=== PATIENT | female | born 1985 | race Caucasian/White ===

== ENCOUNTER 2018-09-21 15:03 | Emergency (ER) | payer BC ==
--- OUTSIDE RECORDS SUMMARY | 2018-09-21 15:05 | XMS REPORT | Clinical Summary ---
:1985 Author Organization [facility] Address [address] [place] [address] Care Team Providers Name Role Phone Scottie Bateman MD Primary Care Provider Unavailable Allergies No Known Allergies Medications Not on file Active Problems Problem Noted Date Vaginal discharge 09/06/2016 Social History Tobacco Use Types Packs/Day Years Used Date Never Smoker Alcohol Use Drinks/Week oz/Week Comments Yes ocassional Sex Assigned at Date Recorded Not on file Job Start Date Occupation Industry Not on file Not on file Not on file Travel History Travel Start Travel End No recent travel history available. Last Filed Vital Signs Not on file Plan of Treatment Health Maintenance Due Date Last Done Comments CERVICAL CANCER SCREENING 01/31/2008 INFLUENZA VACCINE 06/10/2018 Results Not on fileafter 09/20/2017 Insurance Payer Benefit Plan / Group Subscriber ID Type Phone Address [facility] CHOICE/CHOICE + xxxxxxxxx HMO/PPO Advance Directives Patient has advance care planning documents on file. For more information, please contact:[phone] [place] [address]
--- NOTE | 2018-09-21 15:56 | ER ---
Nurse's Notes [facility] Name: Maria Victoria Abdalla Age: 33 yrs Sex: Female : 1985 Arrival Date: 09/21/2018 Time: 15:06 Bed Treatment Private MD: LEON DESAI Diagnosis: Acute pharyngitis Presentation: 09/21 15:09 Presenting complaint: Patient states: sore throat, left neck swelling, fever Tmax sv 101.8. Tylenol taken at 0530. Transition of care: patient was not received from another setting of care. Onset of symptoms was September 21, 2018. Care prior to arrival: None. 15:09 Method Of Arrival: Ambulatory sv 15:09 Acuity: DIMPLE 4 sv 16:08 Risk Assessment: Do you want to hurt yourself or someone else? Patient reports no rv desire to harm self or others. Initial Sepsis Screen: Does the patient meet any 2 criteria? No. Patient's initial sepsis screen is negative. Does the patient have a suspected source of infection? No. Patient's initial sepsis screen is negative. Triage Assessment: 15:12 General: Appears in no apparent distress. uncomfortable, obese, Behavior is calm, sv cooperative, appropriate for age. General: Reports fever for 0-12 hours. Pain: Complains of pain in throat Pain currently is 2 out of 10 on a pain scale. EENT: Reports pain in left aspect of posterior pharynx and right aspect of posterior pharynx. Neuro: Level of Consciousness is awake, alert, obeys commands, Oriented to person, place, time, situation, Moves all extremities. Full function Gait is steady, Speech is normal. Respiratory: Respiratory effort is even, unlabored, Respiratory pattern is regular, symmetrical. Historical: - Allergies: 15:11 No Known Allergies; sv - Home Meds: 16:14 Adderall XR 20 mg Oral cp24 1 cap three times a day [Active]; amlodipine 10 mg tab 1 rv tab once daily [Active]; Lexapro 10 mg Oral tab 1 tab nightly [Active]; metformin 750 mg Oral Tb24 1 tab twice a day [Active]; Singulair 10 mg Oral tab 1 tab once daily [Active]; - PMHx: 15:11 ADD/ADHD; Hypertension; PCOS; Tachycardia; sv - PSHx: 16:14 Unable to obtain; rv - Immunization history:: Flu vaccine is not up to date. - Social history:: Smoking status: Patient/guardian denies using tobacco. - Ebola Screening: : No symptoms or risks identified at this time. Screenin:08 Abuse screen: Denies threats or abuse. Denies injuries from another. Nutritional rv screening: No deficits noted. Tuberculosis screening: No symptoms or risk factors identified. Fall Risk None identified. Assessment: 16:07 General: Appears in no apparent distress. comfortable, Behavior is calm, cooperative. rv Pain: Complains of pain in throat. Neuro: Level of Consciousness is awake, alert, obeys commands, Oriented to person, place, time, situation. Cardiovascular: Capillary refill < 3 seconds. Respiratory: Airway is patent Breath sounds are clear bilaterally. GI: No signs and/or symptoms were reported involving the gastrointestinal system. : No signs and/or symptoms were reported regarding the genitourinary system. EENT: Throat is reddened. Derm: Skin is intact. Musculoskeletal: No signs and/or symptoms reported regarding the musculoskeletal system. Vital Signs: 15:11 BP 133 / 98; Pulse 100; Resp 20; Temp 98.6; Pulse Ox 100% ; Weight 120.2 kg; Height 5 sv ft. 5 in. (165.10 cm); Pain 2/10; 15:11 Body Mass Index 44.10 (120.20 kg, 165.10 cm) sv ED Course: 15:06 Patient arrived in ED. sb2 15:06 LEON DESAI is Private Physician. sb2 15:10 Triage completed. sv 15:12 Arm band placed on. sv 15:14 Zoie Rebolledo FNP-C [facility]. snw 15:15 Ronaldo Chavarria MD is Attending Physician. snw 16:08 Patient has correct armband on for positive identification. Bed in low position. Call rv light in reach. Side rails up X 1. Pulse ox on. NIBP on. 16:13 No provider procedures requiring assistance completed. Patient did not have IV access rv during this emergency room visit. Administered Medications: 16:00 Drug: Decadron - Dexamethasone 10 mg {Note: given PO..} Route: IVP; Site: Other; rv 16:12 Follow up: Response: Medication administered at discharge. rv 16:02 Drug: Albuterol 2.5 mg Route: Inhalation; rv 16:13 Follow up: Response: No adverse reaction rv Outcome: 15:56 Discharge ordered by . sachin 16:15 Discharged to home ambulatory. rv 16:15 Condition: improved 16:15 Discharge instructions given to patient, Instructed on discharge instructions, follow up and referral plans. medication usage, Demonstrated understanding of instructions, follow-up care, medications, Prescriptions given X 2. 16:15 Patient left the ED. rv Signatures: Lindy Santos RN RN sv Zoie Rebolledo, DIGITAL COMMUNITY MANAGER-C DIGITAL COMMUNITY MANAGER-Verona Gallo sb2 Fam Wallace RN RN rv Corrections: (The following items were deleted from the chart) 15:13 15:11 Pulse 100bpm; Resp 20bpm; Pulse Ox 100%; Temp 98.6F; 120.2 kg; Height 5 ft. 5 sv in.; BMI: 44.1; Pain 2/10; sv
--- NOTE | 2018-09-21 15:56 | EDPHYS ---
Physician Documentation [facility] Name: Maria Victoria Abdalla Age: 33 yrs Sex: Female : 1985 Arrival Date: 09/21/2018 Time: 15:06 Bed Treatment Private MD: LEON DESAI ED Physician Ronaldo Chavarria HPI: 09/21 15:54 This 33 yrs old Female presents to ER via Ambulatory with complaints of Sore snw Throat. 15:54 The patient presents with sore throat. The patient describes throat pain as raw, snw scratchy. Onset: The symptoms/episode began/occurred suddenly, 1 day(s) ago, and became worse and became persistent. Severity of symptoms: At their worst the symptoms were moderate, severe. Associated signs and symptoms: The patient has no apparent associated signs or symptoms. The patient has experienced a previous episode. The patient has not recently seen a physician. Historical: - Allergies: 15:11 No Known Allergies; sv - Home Meds: 16:14 Adderall XR 20 mg Oral cp24 1 cap three times a day [Active]; amlodipine 10 mg tab 1 rv tab once daily [Active]; Lexapro 10 mg Oral tab 1 tab nightly [Active]; metformin 750 mg Oral Tb24 1 tab twice a day [Active]; Singulair 10 mg Oral tab 1 tab once daily [Active]; - PMHx: 15:11 ADD/ADHD; Hypertension; PCOS; Tachycardia; sv - PSHx: 16:14 Unable to obtain; rv - Immunization history:: Flu vaccine is not up to date. - Social history:: Smoking status: Patient/guardian denies using tobacco. - Ebola Screening: : No symptoms or risks identified at this time. ROS: 15:53 Eyes: Negative for injury, pain, redness, and discharge. snw 15:53 Neck: Negative for injury, pain, and swelling, Cardiovascular: Negative for chest pain, palpitations, and edema, Respiratory: Negative for shortness of breath, cough, wheezing, and pleuritic chest pain, Abdomen/GI: Negative for abdominal pain, nausea, vomiting, diarrhea, and constipation, Back: Negative for injury and pain, : Negative for injury, bleeding, discharge, and swelling, MS/Extremity: Negative for injury and deformity, Skin: Negative for injury, rash, and discoloration, Neuro: Negative for headache, weakness, numbness, tingling, and seizure. 15:53 Constitutional: Positive for body aches, fever, malaise. 15:53 ENT: Positive for sore throat. Exam: 15:52 Constitutional: This is a well developed, well nourished patient who is awake, alert, snw and in no acute distress. Head/Face: Normocephalic, atraumatic. Eyes: Pupils equal round and reactive to light, extra-ocular motions intact. Lids and lashes normal. Conjunctiva and sclera are non-icteric and not injected. Cornea within normal limits. Periorbital areas with no swelling, redness, or edema. ENT: Nares patent. No nasal discharge, no septal abnormalities noted. Tympanic membranes are not seen and external auditory canals are impacted with cerumen. Oropharynx with redness, swelling, no masses, exudates, or evidence of obstruction, uvula midline. Mucous membranes moist. Neck: Trachea midline, no thyromegaly or masses palpated, and no cervical lymphadenopathy. Supple, full range of motion without nuchal rigidity, or vertebral point tenderness. No Meningismus. Chest/axilla: Normal chest wall appearance and motion. Nontender with no deformity. No lesions are appreciated. Cardiovascular: Regular rate and rhythm with a normal S1 and S2. No gallops, murmurs, or rubs. Normal PMI, no JVD. No pulse deficits. Abdomen/GI: Soft, non-tender, with normal bowel sounds. No distension or tympany. No guarding or rebound. No evidence of tenderness throughout. Back: No spinal tenderness. No costovertebral tenderness. Full range of motion. 15:52 Skin: Warm, dry with normal turgor. Normal color with no rashes, no lesions, and no evidence of cellulitis. MS/ Extremity: Pulses equal, no cyanosis. Neurovascular intact. Full, normal range of motion. Neuro: Awake and alert, GCS 15, oriented to person, place, time, and situation. Cranial nerves II-XII grossly intact. Motor strength 5/5 in all extremities. Sensory grossly intact. Cerebellar exam normal. Normal gait. 15:52 Respiratory: the patient does not display signs of respiratory distress, Respirations: normal, Breath sounds: wheezing: expiratory that is mild, is scattered. Vital Signs: 15:11 BP 133 / 98; Pulse 100; Resp 20; Temp 98.6; Pulse Ox 100% ; Weight 120.2 kg; Height 5 sv ft. 5 in. (165.10 cm); Pain 2/10; 15:11 Body Mass Index 44.10 (120.20 kg, 165.10 cm) sv MDM: 15:15 Patient medically screened. snw 16:00 Data reviewed: vital signs, nurses notes. Data interpreted: Pulse oximetry: on room air snw is 100 %. Interpretation: normal. Counseling: I had a detailed discussion with the patient and/or guardian regarding: the historical points, exam findings, and any diagnostic results supporting the discharge/admit diagnosis, the presence of at least one elevated blood pressure reading (>120/80) during this emergency department visit, lab results, the need for outpatient follow up, to return to the emergency department if symptoms worsen or persist or if there are any questions or concerns that arise at home. Special discussion: Based on the history and exam findings, there is no indication for further emergent testing or inpatient evaluation. I discussed with the patient/guardian the need to see the primary care provider for further evaluation of the symptoms. 09/21 15:15 Order name: Strep; Complete Time: 15:55 ss 09/21 15:54 Order name: Throat Culture EDMS Administered Medications: 16:00 Drug: Decadron - Dexamethasone 10 mg {Note: given PO..} Route: IVP; Site: Other; rv 16:12 Follow up: Response: Medication administered at discharge. rv 16:02 Drug: Albuterol 2.5 mg Route: Inhalation; rv 16:13 Follow up: Response: No adverse reaction rv Disposition: 09/22 07:06 Co-signature as Attending Physician, Ronaldo Chavarria MD I agree with the assessment and quan plan of care. Disposition: 09/21/18 15:56 Discharged to Home. Impression: Acute pharyngitis. - Condition is Stable. - Discharge Instructions: Fever, Adult, Pharyngitis. - Prescriptions for Prednisone 20 mg Oral Tablet - take 1 tablet by ORAL route every 12 hours for 5 days; 10 tablet. Albuterol Sulfate 90 mcg/actuation - inhale 1-2 puff by INHALATION route every 4-6 hours; 1 Inhaler. - Work release form, Medication Reconciliation Form, Thank You Letter, Antibiotic Education, Prescription Opioid Use form. - Follow up: Private Physician; When: 2 - 3 days; Reason: Recheck today's complaints, Continuance of care, Re-evaluation by your physician. Follow up: Emergency Department; When: As needed; Reason: Worsening of condition. Signatures: Dispatcher [employer] Lindy Restrepo, RN RN Ronaldo Joe MD MD cha Therrien, Shelly, WAITER/WAITRESS CLUB-C WAITER/WAITRESS CLUB-[employer] Fam Wallace, RN RN rv Corrections: (The following items were deleted from the chart) 09/21 15:57 15:55 Chart complete. [facility] sn 15:57 15:55 Chart complete. [facility] sn 16:15 15:56 09/21/2018 15:56 Discharged to Home. Impression: Acute pharyngitis. Condition is rv Stable. Forms are Medication Reconciliation Form, Thank You Letter, Antibiotic Education, Prescription Opioid Use. Follow up: Private Physician; When: 2 - 3 days; Reason: Recheck today's complaints, Continuance of care, Re-evaluation by your physician. Follow up: Emergency Department; When: As needed; Reason: Worsening of condition. snw
[2018-09-21] MEDS ORDERED: DEXAMETHASONE 4 MG/ML VIAL ONE (16:04)
[2018-09-21] MEDS ORDERED: ALBUTEROL 2.5 MG/3 ML NEB SOL ONE (16:04)
== END 2018-09-21 16:15 | disposition home or self-care (01) ==
LOC: ER 15:03
DX: J02.9 Acute pharyngitis, unspecified (principal); I10 Essential (primary) hypertension; E28.2 Polycystic ovarian syndrome; F90.9 Attention-deficit hyperactivity disorder, unspecified type; Z79.899 Other long term (current) drug therapy
CPT/HCPCS: 87070; 87081; 96374; 99284

== ENCOUNTER 2019-03-16 18:22 | Emergency (ER) | payer BC ==
--- OUTSIDE RECORDS SUMMARY | 2019-03-16 18:25 | XMS REPORT | Clinical Summary ---
:1985 Author Organization [facility] Address [address] [place] [address] Care Team Providers Name Role Phone Scottie [...] Comments CERVICAL CANCER SCREENING 01/31/2008 INFLUENZA VACCINE 06/10/2019 Results Not on fileafter 03/15/2018 Insurance Payer Benefit Plan / Group Subscriber ID Type Phone Address [facility] CHOICE/CHOICE + xxxxxxxxx HMO/PPO Advance Directives Patient has advance care planning documents on file. For more information, please contact:[phone] [place] [address]
--- NOTE | 2019-03-16 20:23 | EDPHYS ---
Physician Documentation [facility] Name: Maria Victoria Abdalla Age: 34 yrs Sex: Female : 1985 Arrival Date: 03/16/2019 Time: 18:23 Bed 11 Private MD: ED Physician Dean Kenny HPI: 03/16 20:43 This 34 yrs old Female presents to ER via Ambulatory with complaints of Ear jr8 Pain, Headache, Neck Swelling. 20:43 The patient presents with pain. The complaints affect the left ear. Onset: The jr8 symptoms/episode began/occurred acutely, today. Modifying factors: The symptoms are alleviated by nothing, the symptoms are aggravated by nothing. Associated signs and symptoms: Pertinent positives: headache. Severity of symptoms: At their worst the symptoms were moderate in the emergency department the symptoms are unchanged. The patient has not experienced similar symptoms in the past. The patient has not recently seen a physician. stated that she has history of PVC in past and started to have palpitations as well. 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 - Social history:: Smoking status: Patient/guardian denies using tobacco. - Ebola Screening: : Patient negative for fever greater than or equal to 101.5 degrees Fahrenheit, and additional compatible Ebola Virus Disease symptoms Patient denies exposure to infectious person Patient denies travel to an Ebola-affected area in the 21 days before illness onset No symptoms or risks identified at this time. ROS: 20:43 Eyes: Negative for injury, pain, redness, and discharge, Neck: Negative for injury, jr8 pain, and swelling, Cardiovascular: Negative for chest pain or edema. Positive for palpitations Respiratory: Negative for shortness of breath, cough, wheezing, and pleuritic chest pain, Abdomen/GI: Negative for abdominal pain, nausea, vomiting, diarrhea, and constipation, Back: Negative for injury and pain, MS/Extremity: Negative for injury and deformity, Skin: Negative for injury, rash, and discoloration. 20:43 ENT: Positive for ear pain, Negative for drainage from ear(s), tinnitus, nasal discharge, rhinorrhea, sinus congestion, sinus pain, difficulty swallowing, difficulty handling secretions, hoarseness. 20:43 Neuro: Positive for headache, Negative for altered mental status, dizziness, gait disturbance, hearing loss, loss of consciousness, numbness, seizure activity, speech changes, syncope, near syncope, tingling, tinnitus, tremor, visual changes, weakness. Exam: 20:43 Eyes: Pupils equal round and reactive to light, extra-ocular motions intact. Lids and jr8 lashes normal. Conjunctiva and sclera are non-icteric and not injected. Cornea within normal limits. Periorbital areas with no swelling, redness, or edema. Neck: Trachea midline, no thyromegaly or masses palpated, and no cervical lymphadenopathy. Supple, full range of motion without nuchal rigidity, or vertebral point tenderness. No Meningismus. Cardiovascular: Regular rate and rhythm with a normal S1 and S2. No gallops, murmurs, or rubs. Normal PMI, no JVD. No pulse deficits. Respiratory: Lungs have equal breath sounds bilaterally, clear to auscultation and percussion. No rales, rhonchi or wheezes noted. No increased work of breathing, no retractions or nasal flaring. Abdomen/GI: Soft, non-tender, with normal bowel sounds. No distension or tympany. No guarding or rebound. No evidence of tenderness throughout. Back: No spinal tenderness. No costovertebral tenderness. Full range of motion. Skin: Warm, dry with normal turgor. Normal color with no rashes, no lesions, and no evidence of cellulitis. MS/ Extremity: Pulses equal, no cyanosis. Neurovascular intact. Full, normal range of motion. Neuro: Awake and alert, GCS 15, oriented to person, place, time, and situation. Cranial nerves II-XII grossly intact. Motor strength 5/5 in all extremities. Sensory grossly intact. Cerebellar exam normal. Normal gait. 20:43 ENT: Exam is negative for nasal discharge, enlarged tonsils, pharyngitis, dental infection, exudate, External ear(s): are unremarkable, Ear canal(s): cerumen impaction, that is severe, that is hard, occluding the left ear canal, Examination of the other ear shows no obvious abnormality. 20:46 ECG was reviewed by the Attending Physician. jr8 Vital Signs: 18:30 BP 123 / 86; Pulse 95; Resp 16; Temp 98.6; Pulse Ox 98% on R/A; Weight 119.75 kg; aj Height 5 ft. 5 in. (165.10 cm); 18:30 Body Mass Index 43.93 (119.75 kg, 165.10 cm) aj MDM: 19:11 Patient medically screened. jr8 20:22 Data reviewed: vital signs, nurses notes, EKG. Data interpreted: Pulse oximetry: on jr8 room air is 98 %. Interpretation: normal. Counseling: I had a detailed discussion with the patient and/or guardian regarding: the historical points, exam findings, and any diagnostic results supporting the discharge/admit diagnosis, the need for outpatient follow up, an ENT specialist, to return to the emergency department if symptoms worsen or persist or if there are any questions or concerns that arise at home. 03/16 19:48 Order name: EKG; Complete Time: 19:50 jr8 EC:46 Rate is 73 beats/min. Rhythm is regular, Normal Sinus Rhythm. QRS Susan is Normal. MO jr8 interval is normal at 176 msec. QRS interval is normal at 86 msec. QT interval is normal at 451 msec. No Q waves. T waves are Normal. No ST changes noted. Clinical impression: Normal ECG and No evidence of ischemia. Interpreted by me. Reviewed by me. Administered Medications: No medications were administered Disposition: 03/16/19 20:23 Discharged to Home. Impression: Otalgia, left ear, Impacted cerumen, left ear, Palpitations. - Condition is Stable. - Discharge Instructions: Earwax Buildup, Adult, Holter Monitoring, Earache, Adult, Palpitations. - Prescriptions for Amoxicillin 875 mg Oral Tablet - take 1 tablet by ORAL route every 12 hours for 10 days; 20 tablet. - Medication Reconciliation Form, Thank You Letter, Antibiotic Education, Prescription Opioid Use form. - Follow up: Louie Ott MD; When: 2 - 3 days; Reason: Recheck today's complaints, Continuance of care, Re-evaluation by your physician. Follow up: Lindy Felix MD; When: 2 - 3 days; Reason: Recheck today's complaints, Continuance of care, Re-evaluation by your physician. - Problem is new. - Symptoms have improved. Addendum: 03/18/2019 02:07 Co-signature as Attending Physician, Dean Kenny MD. g s Signatures: Rosy Aviles RN RN aj1 Maria Victoria Camarena RN RN aj Aj Yin, ZAHIRA PA jr8 Dean Kenny MD MD gs Corrections: (The following items were deleted from the chart) 03/16 20:46 20:23 03/16/2019 20:23 Discharged to Home. Impression: Otalgia, left ear; Impacted aj1 cerumen, left ear; Palpitations. Condition is Stable. Forms are Medication Reconciliation Form, Thank You Letter, Antibiotic Education, Prescription Opioid Use. Follow up: Louie Ott; When: 2 - 3 days; Reason: Recheck today's complaints, Continuance of care, Re-evaluation by your physician. Follow up: Lindy Felix; When: 2 - 3 days; Reason: Recheck today's complaints, Continuance of care, Re-evaluation by your physician. Problem is new. Symptoms have improved. jr8
--- NOTE | 2019-03-16 20:23 | ER ---
Nurse's Notes [facility] Name: Maria Victoria Abdalla Age: 34 yrs Sex: Female : 1985 Arrival Date: 03/16/2019 Time: 18:23 Bed 11 Private MD: Diagnosis: Otalgia, left ear;Impacted cerumen, left ear;Palpitations Presentation: 03/16 18:29 Presenting complaint: Patient states: Left ear pain for 2 days. Transition of care: aj patient was not received from another setting of care. Onset of symptoms was March 14, 2019. Risk Assessment: Do you want to hurt yourself or someone else? Patient reports no desire to harm self or others. Initial Sepsis Screen: Does the patient meet any 2 criteria? No. Patient's initial sepsis screen is negative. Does the patient have a suspected source of infection? No. Patient's initial sepsis screen is negative. Care prior to arrival: None. 18:29 Method Of Arrival: Ambulatory 18:29 Acuity: DIMPLE 5 aj Triage Assessment: 18:30 General: Appears in no apparent distress. comfortable, Behavior is calm, cooperative, aj appropriate for age. Pain: Complains of pain in left ear. EENT: Reports pain in left ear. Neuro: Level of Consciousness is awake, alert, obeys commands, Oriented to person, place, time, situation, Appropriate for age. Respiratory: Airway is patent Respiratory effort is even, unlabored, Respiratory pattern is regular, symmetrical. Derm: Skin is intact, is healthy with good turgor, Skin is pink, warm \T\ dry. normal. PERSONNEL MONITOR: 18:30 LMP N/A - IUD aj Historical: - Allergies: 18:30 No Known Allergies; aj - Home Meds: 18:30 Adderall XR 20 mg Oral cp24 1 cap three times a day [Active]; amlodipine 10 mg tab 1 aj tab once daily [Active]; Lexapro 10 mg Oral tab 1 tab nightly [Active]; metformin 750 mg Oral Tb24 1 tab twice a day [Active]; Singulair 10 mg Oral tab 1 tab once daily [Active]; - PMHx: 18:30 ADD/ADHD; Hypertension; PCOS; PVC; aj - PSHx: 18:30 Cholecystectomy; lap Band; Adenoids; aj - Immunization history:: Adult Immunizations up to date. - Social history:: Smoking status: Patient/guardian denies using tobacco. - Ebola Screening: : Patient negative for fever greater than or equal to 101.5 degrees Fahrenheit, and additional compatible Ebola Virus Disease symptoms Patient denies exposure to infectious person Patient denies travel to an Ebola-affected area in the 21 days before illness onset No symptoms or risks identified at this time. Screenin:42 Abuse screen: Denies threats or abuse. Denies injuries from another. Nutritional aj1 screening: No deficits noted. Tuberculosis screening: No symptoms or risk factors identified. 20:45 Fall Risk None identified. aj1 Assessment: 20:42 General: Appears in no apparent distress. comfortable, Behavior is calm, cooperative, aj1 appropriate for age. Pain: Complains of pain in left ear. Neuro: Level of Consciousness is awake, alert, obeys commands. Cardiovascular: Patient's skin is warm and dry. Cardiovascular: Reports palpitations. Respiratory: Airway is patent Respiratory effort is even, unlabored, Respiratory pattern is regular, symmetrical. GI: No signs and/or symptoms were reported involving the gastrointestinal system. : No signs and/or symptoms were reported regarding the genitourinary system. EENT: Reports ear pain. Derm: Skin is. Musculoskeletal: No signs and/or symptoms reported regarding the musculoskeletal system. Circulation, motion, and sensation intact. Vital Signs: 18:30 BP 123 / 86; Pulse 95; Resp 16; Temp 98.6; Pulse Ox 98% on R/A; Weight 119.75 kg; aj Height 5 ft. 5 in. (165.10 cm); 18:30 Body Mass Index 43.93 (119.75 kg, 165.10 cm) aj ED Course: 18:23 Patient arrived in ED. as 18:30 Triage completed. aj 18:30 Arm band placed on left wrist. Patient placed in waiting room, Patient notified of wait aj time. 19:09 Rosy Aviles RN is Primary Nurse. aj1 19:10 Aj Yin PA is PHCP. jr8 19:10 Dean Kenny MD is Attending Physician. jr8 20:23 Louie Ott MD is Referral Physician. jr8 20:23 Lindy Felix MD is Referral Physician. jr8 20:42 Patient has correct armband on for positive identification. aj1 20:42 No provider procedures requiring assistance completed. Patient did not have IV access aj1 during this emergency room visit. Administered Medications: No medications were administered Outcome: 20:23 Discharge ordered by . lakisha 20:42 Discharged to home ambulatory. aj1 20:42 Condition: good 20:42 Discharge instructions given to patient, Instructed on discharge instructions, follow up and referral plans. Demonstrated understanding of instructions. 20:46 Patient left the ED. aj1 Signatures: Rosy Aviles RN RN ajMaria Victoria Pfeiffer RN RN Irma Monge Josh, PA PA jr8
[2019-03-16 22:20] VITALS: BP 123/86; TEMP 98.6; O2SAT 98
--- NOTE | 2019-03-17 10:40 | EKG ---
Test Date: 2019-03-16 Test Time: 20:18:53 Or Rn: MEASUREMENT RESULTS: Intervals: Rate: 73 AR: 176 QRSD: 86 QT: 410 QTc: 451 [place]: P: 64 AR: 176 QRS: 54 T: 42 INTERPRETIVE STATEMENTS: Normal sinus rhythm Normal ECG No previous ECG available for comparison Electronically Signed On 03-17-19 10:39:21 CDT by Gage Marin
== END 2019-03-16 20:46 | disposition home or self-care (01) ==
LOC: ER 18:22
DX: H61.22 Impacted cerumen, left ear (principal); R00.2 Palpitations; I10 Essential (primary) hypertension; F90.9 Attention-deficit hyperactivity disorder, unspecified type
CPT/HCPCS: 93005; 99281

== ENCOUNTER 2019-12-17 08:13 | Emergency (ER) | payer BC ==
[2019-12-17] MEDS ORDERED: ALBUTEROL 2.5 MG/3 ML NEB SOL ONE (10:08)
[2019-12-17] MEDS ORDERED: IPRATROPIUM BROM 0.5MG/2.5ML ONE (10:09)
[2019-12-17] MEDS ORDERED: dexAMETHasone 4 MG TAB ONE (10:30)
--- NOTE | 2019-12-17 10:43 | RAD REPORT ---
EXAM DESCRIPTION: RAD - Chest Pa And Lat (2 Views) - 12/17/2019 10:37 am CLINICAL HISTORY: COUGH Chest pain. COMPARISON: No comparisons FINDINGS: Mild interstitial prominence is present bilaterally suggesting interstitial pneumonitis/ b ronchitis. No focal consolidation typical of pneumonia seen. The heart is upper limit of normal in si ze. No displaced fractures.
--- NOTE | 2019-12-17 10:50 | ER ---
Nurse's Notes [facility] Name: Maria Victoria Abdalla Age: 34 yrs Sex: Female : 1985 Arrival Date: 12/17/2019 Time: 08:16 Bed 18 Private MD: Diagnosis: Acute bronchitis, unspecified Presentation: 12/17 09:09 Presenting complaint: Patient states: cough, intermittent fever X 2 weeks, was given iw Rocephin shot, Z-pack and Tamiflu 2 weeks ago, felt better but now her throat hurts and the cough is worse and fever, hx of asthma and feels like her chest is tight. Transition of care: patient was not received from another setting of care. Onset of symptoms was December 04, 2019. Risk Assessment: Do you want to hurt yourself or someone else? Patient reports no desire to harm self or others. Initial Sepsis Screen: Does the patient meet any 2 criteria? No. Patient's initial sepsis screen is negative. Does the patient have a suspected source of infection? No. Patient's initial sepsis screen is negative. Care prior to arrival: None. 09:09 Method Of Arrival: Ambulatory 09:09 Acuity: DIMPLE 3 iw Triage Assessment: 09:30 General: Appears in no apparent distress. comfortable, obese, Behavior is cooperative, bp appropriate for age, anxious. Pain: Complains of pain in THROAT. EENT: No deficits noted. Neuro: No deficits noted. Cardiovascular: No deficits noted. Respiratory: No deficits noted. GI: No signs and/or symptoms were reported involving the gastrointestinal system. : No signs and/or symptoms were reported regarding the genitourinary system. Derm: No deficits noted. Musculoskeletal: No deficits noted. 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 - Coronavirus screen:: The patient has NOT traveled to [place], [place], or [place] in the past 14 days. Proceed with normal triage process as indicated. - Social history:: Smoking status: Patient denies any tobacco usage or history of. - Ebola Screening: : Patient negative for fever greater than or equal to 101.5 degrees Fahrenheit, and additional compatible Ebola Virus Disease symptoms Patient denies exposure to infectious person Patient denies travel to an Ebola-affected area in the 21 days before illness onset No symptoms or risks identified at this time. Screenin:32 Abuse screen: Denies threats or abuse. Denies injuries from another. Nutritional bp screening: No deficits noted. Tuberculosis screening: No symptoms or risk factors identified. Fall Risk None identified. Assessment: 09:32 General: SEE TRIAGE NOTE. Pain: Pain does not radiate. Pain began gradually. 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 bp 10:55 Reassessment: PT RETURNED FROM XRAY, DISPO PENDING. bp 11:00 Reassessment: PT D/C HOME AMBULATORY, DX WITH BRONCHITIS. bp Vital Signs: 09:12 BP 156 / 105; Pulse 89; Resp 18; Temp 97.7; Pulse Ox 100% on R/A; Weight 124.74 kg; iw Height 5 ft. 5 in. (165.10 cm); Pain 3/10; 10:55 BP 140 / 89; Pulse 92; Resp 16; Temp 98; Pulse Ox 96% ; bp 09:12 Body Mass Index 45.76 (124.74 kg, 165.10 cm) iw ED Course: 08:16 Patient arrived in ED. as 08:31 Zoie Rebolledo FNP-C is PHCP. snw 08:31 Vignesh Milian MD is Attending Physician. snw 09:11 Triage completed. iw 09:12 Arm band placed on. iw 09:29 Daniel Zimmerman, LEX is Primary Nurse. bp 09:29 Primary Nurse role handed off by Daniel Zimmerman, LEX sg 09:29 Noé Capellan, LEX is Primary Nurse. sg 09:32 Patient has correct armband on for positive identification. Bed in low position. Call bp light in reach. Side rails up X2. Pulse ox on. NIBP on. 10:06 Daniel Zimmerman, RN is Primary Nurse. bp 10:34 Chest Pa And Lat (2 Views) XRAY In Process Unspecified. EDMS 11:00 No provider procedures requiring assistance completed. Patient did not have IV access bp during this emergency room visit. Patient maintains SpO2 saturation greater than 95% on room air. Administered Medications: 10:18 Drug: Albuterol 2.5 mg Route: Inhalation; sg 10:25 Drug: Decadron 8 mg Route: PO; sg 11:02 Follow up: Response: Marked relief of symptoms bp Outcome: 10:50 Discharge ordered by . sachin 11:00 Discharged to home ambulatory. bp 11:00 Condition: stable 11:00 Discharge instructions given to patient, Instructed on discharge instructions, follow up and referral plans. medication usage, Demonstrated understanding of instructions, follow-up care, medications, Prescriptions given X 4. 11:02 Patient left the ED. bp Signatures: Dispatcher [employer] EDMS Noé Capellan RN RN sg Therrien, Shelly, PSYCHIATRIC SECURITY NURSE-C PSYCHIATRIC SECURITY NURSE-Irma Howard as Chica Tian RN RN Daniel Zimmerman RN RN bp
--- NOTE | 2019-12-17 10:50 | EDPHYS ---
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 - Coronavirus screen:: The patient has NOT traveled to [place], [place], or [place] in the past 14 days. Proceed with normal triage process as indicated. - Social history:: Smoking status: Patient denies any tobacco usage or history of. - Ebola Screening: : Patient negative for fever greater than or equal to 101.5 degrees Fahrenheit, and additional compatible Ebola Virus Disease symptoms Patient denies exposure to infectious person Patient denies travel to an Ebola-affected area in the 21 days before illness onset No symptoms or risks identified at this time. ROS: 10:54 Constitutional: Negative for fever, chills, and weight loss, Eyes: Negative for injury, snw pain, redness, and discharge, ENT: Negative for injury, pain, and discharge, Neck: Negative for injury, pain, and swelling, Cardiovascular: Negative for chest pain, palpitations, and edema. 10:54 Abdomen/GI: Negative for abdominal pain, nausea, vomiting, diarrhea, and constipation, Back: Negative for injury and pain, : Negative for injury, bleeding, discharge, and swelling, MS/Extremity: Negative for injury and deformity, Skin: Negative for injury, rash, and discoloration, Neuro: Negative for headache, weakness, numbness, tingling, and seizure, Psych: Negative for depression, anxiety, suicide ideation, homicidal ideation, and hallucinations. 10:54 Respiratory: Positive for cough, shortness of breath, wheezing, expiratory. Exam: 10:02 Constitutional: This is a well developed, obese patient who is awake, alert, and in no snw acute distress. Eyes: Pupils equal round and reactive to light, extra-ocular motions intact. Lids and lashes normal. Conjunctiva and sclera are non-icteric and not injected. Cornea within normal limits. Periorbital areas with no swelling, redness, or edema. ENT: Nares patent. No nasal discharge, no septal abnormalities noted. Tympanic membranes are not seen as external auditory canals are impacted with cerumen. Oropharynx with no redness, swelling, or masses, exudates, or evidence of obstruction, uvula midline. Mucous membranes moist. Neck: Trachea midline, no thyromegaly or masses palpated, and no cervical lymphadenopathy. Supple, full range of motion without nuchal rigidity, or vertebral point tenderness. No Meningismus. Chest/axilla: Normal chest wall appearance and motion. Nontender with no deformity. No lesions are appreciated. Cardiovascular: Regular rate and rhythm with a normal S1 and S2. No gallops, murmurs, or rubs. Normal PMI, no JVD. No pulse deficits. Abdomen/GI: Soft, non-tender, with normal bowel sounds. No distension or tympany. No guarding or rebound. No evidence of tenderness throughout. Back: No spinal tenderness. No costovertebral tenderness. Full range of motion. Skin: Warm, dry with normal turgor. Normal color with no rashes, no lesions, and no evidence of cellulitis. MS/ Extremity: Pulses equal, no cyanosis. Neurovascular intact. Full, normal range of motion. Neuro: Awake and alert, GCS 15, oriented to person, place, time, and situation. Cranial nerves II-XII grossly intact. Motor strength 5/5 in all extremities. Sensory grossly intact. Cerebellar exam normal. Normal gait. Psych: Awake, alert, with orientation to person, place and time. Behavior, mood, and affect are within normal limits. 10:02 Head/face: Noted is flushed cheeks. 10:02 Respiratory: the patient does not display signs of respiratory distress, Respirations: normal, Breath sounds: bronchial sounds, + upper airway congestion. bronchitic cough. Vital Signs: 09:12 BP 156 / 105; Pulse 89; Resp 18; Temp 97.7; Pulse Ox 100% on R/A; Weight 124.74 kg; iw Height 5 ft. 5 in. (165.10 cm); Pain 3/10; 10:55 BP 140 / 89; Pulse 92; Resp 16; Temp 98; Pulse Ox 96% ; bp 09:12 Body Mass Index 45.76 (124.74 kg, 165.10 cm) iw MDM: 09:38 Patient medically screened. snw 10:53 Data reviewed: vital signs, nurses notes. Data interpreted: Pulse oximetry: on room air snw is 100 %. Interpretation: normal. Counseling: I had a detailed discussion with the patient and/or guardian regarding: the historical points, exam findings, and any diagnostic results supporting the discharge/admit diagnosis, the presence of at least one elevated blood pressure reading (>120/80) during this emergency department visit, radiology results, the need for outpatient follow up, to return to the emergency department if symptoms worsen or persist or if there are any questions or concerns that arise at home. Special discussion: I have referred the patient to see his PCP for further evaluation of high blood pressure. Based on the history and exam findings, there is no indication for further emergent testing or inpatient evaluation. I discussed with the patient/guardian the need to see the primary care provider for further evaluation of the symptoms. I discussed with the patient/guardian the need to see the quill worker for further evaluation of the symptoms. 12/17 10:02 Order name: Chest Pa And Lat (2 Views) XRAY; Complete Time: 10:47 snw Administered Medications: 10:18 Drug: Albuterol 2.5 mg Route: Inhalation; sg 10:25 Drug: Decadron 8 mg Route: PO; sg 11:02 Follow up: Response: Marked relief of symptoms bp Disposition: 18:19 Co-signature as Attending Physician, Vignesh Milian MD. ma2 Disposition: 12/17/19 10:50 Discharged to Home. Impression: Acute bronchitis, unspecified. - Condition is Stable. - Discharge Instructions: Acute Bronchitis, Adult, Hypertension, Rehydration, Adult. - Prescriptions for Tessalon Perles 100 mg Oral Capsule - take 1 capsule by ORAL route every 8 hours As needed; 15 capsule. Prednisone 20 mg Oral Tablet - take 2 tablet by ORAL route once daily for 5 days; 10 tablet. Albuterol Sulfate 90 mcg/actuation - inhale 1-2 puff by INHALATION route every 4-6 hours; 1 Inhaler. Albuterol Sulfate 2.5 mg /3 mL (0.083 %) Inhalation Solution for Nebulization - inhale 1 unit by NEBULIZATION route every 8 hours As needed; 1 box. - Medication Reconciliation Form, Thank You Letter, Antibiotic Education, Prescription Opioid Use form. - Work release form (12/17/19 11:03). snw - Follow up: Emergency Department; When: As needed; Reason: Worsening of condition. Follow up: Private Physician; When: 2 - 3 days; Reason: Recheck today's complaints, Continuance of care, Re-evaluation by your physician. - Problem is an acute exacerbation. - Symptoms are unchanged. Signatures: Dispatcher [employer] EDMS Noé Capellan RN RN sg Zoie Rebolledo, CHANTEL-C SEXER-Csnw Chica Tian RN RN iw Peltier, Brian, RN RN bp Alzahri, Mohammad, MD MD ma2 Corrections: (The following items were deleted from the chart) 10:42 10:02 Constitutional: This is a well developed, obese patient who is awake, alert, and snw in no acute distress. Eyes: Pupils equal round and reactive to light, extra-ocular motions intact. Lids and lashes normal. Conjunctiva and sclera are non-icteric and not injected. Cornea within normal limits. Periorbital areas with no swelling, redness, or edema. ENT: Nares patent. No nasal discharge, no septal abnormalities noted. Tympanic membranes are normal and external auditory canals are clear. Oropharynx with no redness, swelling, or masses, exudates, or evidence of obstruction, uvula midline. Mucous membranes moist. Neck: Trachea midline, no thyromegaly or masses palpated, and no cervical lymphadenopathy. Supple, full range of motion without nuchal rigidity, or vertebral point tenderness. No Meningismus. Chest/axilla: Normal chest wall appearance and motion. Nontender with no deformity. No lesions are appreciated. Cardiovascular: Regular rate and rhythm with a normal S1 and S2. No gallops, murmurs, or rubs. Normal PMI, no JVD. No pulse deficits. Abdomen/GI: Soft, non-tender, with normal bowel sounds. No distension or tympany. No guarding or rebound. No evidence of tenderness throughout. Back: No spinal tenderness. No costovertebral tenderness. Full range of motion. Skin: Warm, dry with normal turgor. Normal color with no rashes, no lesions, and no evidence of cellulitis. MS/ Extremity: Pulses equal, no cyanosis. Neurovascular intact. Full, normal range of motion. Neuro: Awake and alert, GCS 15, oriented to person, place, time, and situation. Cranial nerves II-XII grossly intact. Motor strength 5/5 in all extremities. Sensory grossly intact. Cerebellar exam normal. Normal gait. Psych: Awake, alert, with orientation to person, place and time. Behavior, mood, and affect are within normal limits. snw 11:02 10:50 12/17/2019 10:50 Discharged to Home. Impression: Acute bronchitis, unspecified. bp Condition is Stable. Forms are Medication Reconciliation Form, Thank You Letter, Antibiotic Education, Prescription Opioid Use. Follow up: Emergency Department; When: As needed; Reason: Worsening of condition. Follow up: Private Physician; When: 2 - 3 days; Reason: Recheck today's complaints, Continuance of care, Re-evaluation by your physician. Problem is an acute exacerbation. Symptoms are unchanged. snw
[2019-12-17 11:33] VITALS: BP 140/89; TEMP 98; O2SAT 96
== END 2019-12-17 11:02 | disposition home or self-care (01) ==
LOC: ER 08:13
DX: J20.9 Acute bronchitis, unspecified (principal); I10 Essential (primary) hypertension
CPT/HCPCS: 71046; 99285; J8540

== ENCOUNTER 2020-10-24 08:36 | Emergency (ER) | payer BC, SELFPAY ==
--- OUTSIDE RECORDS SUMMARY | 2020-10-24 08:42 | XMS REPORT | Clinical Summary ---
:1985 Author Organization [facility] [employer] Address [address] [place] [address] Care Team Providers Name Role Phone Scottie Bateman MD Primary Care Provider Allergies No Known Active Allergies Medications Not on file Active Problems Problem Noted Date Vaginal discharge 09/06/2016 Surgical History Surgery Date Site/Laterality Comments CHOLECYSTECTOMY ADENOIDECTOMY LAPAROSCOPIC GASTRIC BANDING Medical History Medical History Date Comments UTI (urinary tract infection) Arrhythmia ADHD (attention deficit hyperactivity disorder) Social History Tobacco Use Types Packs/Day Years Used Date Never Smoker Alcohol Use Drinks/Week oz/Week Comments Yes ocassional Sex Assigned at Date Recorded Not on file Last Filed Vital Signs Not on file Plan of Treatment Health Maintenance Due Date Last Done Comments CERVICAL CANCER SCREENING 01/31/2008 INFLUENZA VACCINE 06/10/2020 Results Not on fileafter 10/24/2019 Advance Directives For more information, please contact: [phone] Type Date Recorded 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
[2020-10-24] MEDS ORDERED: NA CHLORIDE 0.9% 500 ML ONE (09:28)
[2020-10-24] MEDS ORDERED: CEFAZOLIN/SWI 1gm 1 GM/10 ML SYR ONE (09:28)
[2020-10-24] MEDS ORDERED: TETANUS & DIPHTHERIA TOX,ADULT 0.5 ML VIAL ONE (09:28)
--- NOTE | 2020-10-24 10:00 | EDPHYS ---
Physician Documentation [facility] Name: Maria Victoria Garsia Age: 35 yrs Sex: Female : 1985 Arrival Date: 10/24/2020 Time: 08:37 Bed 7 Private MD: ED Physician Ronaldo Chavarria HPI: 10/24 08:55 This 35 yrs old Female presents to ER via Ambulatory with complaints of quan Finger Laceration. 08:55 The patient or guardian reports a laceration, pain. The complaints affect the MCP of quan left index finger. Context: The problem was sustained at home. Onset: The symptoms/episode began/occurred just prior to arrival. Modifying factors: The symptoms are alleviated by elevation, the symptoms are aggravated by movement. Associated signs and symptoms: The patient has no apparent associated signs or symptoms. Severity of symptoms: At their worst the symptoms were moderate, in the emergency department the symptoms are unchanged. The patient has not experienced similar symptoms in the past. Historical: - Allergies: 08:48 No Known Allergies; sv - PMHx: 08:48 ADD/ADHD; PVC; PCOS; Hypertension; Tachycardia; sv - PSHx: 08:48 Cholecystectomy; Adenoids; lap Band; sv - Immunization history:: Adult Immunizations up to date, Flu vaccine is not up to date. - Social history:: Smoking status: Patient denies any tobacco usage or history of. - Family history:: not pertinent. ROS: 08:55 Constitutional: Negative for fever, chills, and weight loss, Eyes: Negative for injury, quan pain, redness, and discharge, ENT: Negative for injury, pain, and discharge, Neck: Negative for injury, pain, and swelling, Cardiovascular: Negative for chest pain, palpitations, and edema, Respiratory: Negative for shortness of breath, cough, wheezing, and pleuritic chest pain, Abdomen/GI: Negative for abdominal pain, nausea, vomiting, diarrhea, and constipation, Back: Negative for injury and pain, : Negative for injury, bleeding, discharge, and swelling, Skin: Negative for injury, rash, and discoloration, Neuro: Negative for headache, weakness, numbness, tingling, and seizure, Psych: Negative for depression, anxiety, suicide ideation, homicidal ideation, and hallucinations, Allergy/Immunology: Negative for hives, rash, and allergies, Endocrine: Negative for neck swelling, polydipsia, polyuria, polyphagia, and marked weight changes, Hematologic/Lymphatic: Negative for swollen nodes, abnormal bleeding, and unusual bruising. 08:55 MS/extremity: Positive for decreased range of motion, laceration, pain, tenderness, of the dorsal aspect of proximal phalanx of left index finger and palmar aspect of proximal phalanx of left index finger. Exam: 08:55 Constitutional: This is a well developed, well nourished patient who is awake, alert, quan and in no acute distress. Head/Face: Normocephalic, atraumatic. Eyes: Pupils equal round and reactive to light, extra-ocular motions intact. Lids and lashes normal. Conjunctiva and sclera are non-icteric and not injected. Cornea within normal limits. Periorbital areas with no swelling, redness, or edema. ENT: Nares patent. No nasal discharge, no septal abnormalities noted. Tympanic membranes are normal and external auditory canals are clear. Oropharynx with no redness, swelling, or masses, exudates, or evidence of obstruction, uvula midline. Mucous membranes moist. Neck: Trachea midline, no thyromegaly or masses palpated, and no cervical lymphadenopathy. Supple, full range of motion without nuchal rigidity, or vertebral point tenderness. No Meningismus. Chest/axilla: Normal chest wall appearance and motion. Nontender with no deformity. No lesions are appreciated. Cardiovascular: Regular rate and rhythm with a normal S1 and S2. No gallops, murmurs, or rubs. Normal PMI, no JVD. No pulse deficits. Respiratory: Lungs have equal breath sounds bilaterally, clear to auscultation and percussion. No rales, rhonchi or wheezes noted. No increased work of breathing, no retractions or nasal flaring. Abdomen/GI: Soft, non-tender, with normal bowel sounds. No distension or tympany. No guarding or rebound. No evidence of tenderness throughout. Back: No spinal tenderness. No costovertebral tenderness. Full range of motion. Skin: Warm, dry with normal turgor. Normal color with no rashes, no lesions, and no evidence of cellulitis. Neuro: Awake and alert, GCS 15, oriented to person, place, time, and situation. Cranial nerves II-XII grossly intact. Motor strength 5/5 in all extremities. Sensory grossly intact. Cerebellar exam normal. Normal gait. Psych: Awake, alert, with orientation to person, place and time. Behavior, mood, and affect are within normal limits. 08:55 Musculoskeletal/extremity: Extremities: decreased ROM, laceration, pain, ROM: limited active range of motion, limited passive range of motion, Circulation is intact in all extremities. Sensation intact. Compartment Syndrome exam of affected extremity: is normal. Vital Signs: 08:46 Weight 120.2 kg; Height 5 ft. 5 in. (165.10 cm); Pain 8/10; sv 09:16 BP 124 / 84; Pulse 81; Resp 18; Temp 97.6(TE); Pulse Ox 99% on R/A; mh5 09:26 BP 118 / 78; Pulse 76; Resp 16; Temp 97.5(TE); Pulse Ox 99% on R/A; mh5 10:47 BP 119 / 87; Pulse 78; Resp 18; Temp 97.0; Pulse Ox 100% on R/A; ph 08:46 Body Mass Index 44.10 (120.20 kg, 165.10 cm) sv Laceration: 09:53 Wound Repair of 2.5cm ( 1.0in ) subcutaneous laceration to dorsal aspect of proximal quan phalanx of left index finger and palmar aspect of proximal phalanx of left index finger. Linear shaped.. Distal neuro/vascular/tendon intact. Anesthesia: Local anesthetic administered with 8 mls of 1% lidocaine w/ Epi. Wound prep: Extensive cleansing by me. Skin closed with 4 5-0 Prolene using vertical mattress sutures and sterile technique. Dressed with Neosporin. Patient tolerated well. MDM: 08:41 Patient medically screened. [facility] 08:58 Differential diagnosis: closed fracture. Data reviewed: vital signs, nurses notes, [facility] radiologic studies, plain films. 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 Test interpretation: by ED physician or midlevel provider: plain radiologic studies. Counseling: I had a detailed discussion with the patient and/or guardian regarding: the historical points, exam findings, and any diagnostic results supporting the discharge/admit diagnosis, lab results. 10/24 08:55 Order name: Hand Left 3 View XRAY [facility] 10/24 09:16 Order name: Saline Lock; Complete Time: 09:16 [facility] Administered Medications: 09:35 Drug: NS 0.9% 500 ml Route: IV; Rate: bolus; Site: right antecubital; ph 10:47 Follow up: Response: No adverse reaction; IV Status: Completed infusion; IV Intake: ph 500ml 09:36 Drug: Ancef 1 grams Route: IVPB; Site: right antecubital; ph 10:46 Follow up: Response: No adverse reaction; IV Status: Completed infusion ph 09:36 Not Given (UTD, last tetanus 1-2 years ago): Tetanus-Diphtheria Toxoid Adult 0.5 ml IM ph once 10:01 Drug: KeFLEX 500 mg Route: PO; tw2 10:26 Follow up: Response: No adverse reaction tw2 10:26 Drug: Lidocaine (1 %) 10 ml Volume: 5 ml; Route: Infiltration; tw2 Disposition: 10/24/20 10:00 Discharged to Home. Impression: Laceration without foreign body of left index finger without damage to nail - therogh and through, left index, medial base. - Condition is Stable. - Discharge Instructions: Laceration Care, Adult, Laceration Care, Adult, [id number]. - Prescriptions for Keflex 500 mg Oral Capsule - take 1 capsule by ORAL route every 6 hours for 10 days; 40 capsule. Tylenol- Codeine #3 300-30 mg Oral Tablet - take 2 tablets by ORAL route every 6 hours As needed; 24 tablet. - Medication Reconciliation Form, Thank You Letter, Antibiotic Education, Prescription Opioid Use form. - Follow up: Private Physician; When: 2 - 3 days; Reason: Recheck today's complaints, Continuance of care, Re-evaluation by your physician. Follow up: Chaz Alonso MD; When: 2 - 3 days; Reason: Recheck today's complaints, Continuance of care, Re-evaluation by your physician. - Problem is new. - Symptoms have improved. Signatures: Dispatcher [employer] Lindy Restrepo RN RN sv Anderson, Corey, MD MD cha Hall, Patricia, RN RN ph Wise, Tara, RN RN 2 Ayesha Adames [facility] Corrections: (The following items were deleted from the chart) 11:10 10:00 10/24/2020 10:00 Discharged to Home. Impression: Laceration without foreign body tw2 of left index finger without damage to nail - therogh and through, left index, medial base. Condition is Stable. Forms are Medication Reconciliation Form, Thank You Letter, Antibiotic Education, Prescription Opioid Use. Follow up: Private Physician; When: 2 - 3 days; Reason: Recheck today's complaints, Continuance of care, Re-evaluation by your physician. Follow up: Chaz Alonso; When: 2 - 3 days; Reason: Recheck today's complaints, Continuance of care, Re-evaluation by your physician. Problem is new. Symptoms have improved. quan
--- NOTE | 2020-10-24 10:00 | ER ---
Nurse's Notes [facility] Name: Maria Victoria Garsia Age: 35 yrs Sex: Female : 1985 Arrival Date: 10/24/2020 Time: 08:37 Bed 7 Private MD: Diagnosis: Laceration without foreign body of left index finger without damage to nail-therogh and through, left index, medial base Presentation: 10/24 08:46 Chief complaint: Patient states: puncture wound with a kitchen knife while cutting sv brownies, knife went through and through her left index finger. Coronavirus screen: Client denies travel out of the [place] in the last 14 days. At this time, the client does not indicate any symptoms associated with coronavirus-19. Ebola Screen: No symptoms or risks identified at this time. Risk Assessment: Do you want to hurt yourself or someone else? Patient reports no desire to harm self or others. Onset of symptoms was October 24, 2020. 08:46 Method Of Arrival: Ambulatory sv 08:46 Acuity: DIMPLE 3 sv 10:46 Initial Sepsis Screen: Does the patient meet any 2 criteria? No. Patient's initial ph sepsis screen is negative. Does the patient have a suspected source of infection? No. Patient's initial sepsis screen is negative. Historical: - Allergies: 08:48 No Known Allergies; sv - PMHx: 08:48 ADD/ADHD; PVC; PCOS; Hypertension; Tachycardia; sv - PSHx: 08:48 Cholecystectomy; Adenoids; lap Band; sv - Immunization history:: Adult Immunizations up to date, Flu vaccine is not up to date. - Social history:: Smoking status: Patient denies any tobacco usage or history of. - Family history:: not pertinent. Screenin:50 Abuse screen: Denies threats or abuse. Nutritional screening: No deficits noted. tw2 Tuberculosis screening: No symptoms or risk factors identified. Fall Risk None identified. Assessment: 10:02 Reassessment: Patient appears in no apparent distress at this time. No changes from tw2 previously documented assessment. Patient and/or family updated on plan of care and expected duration. Pain level reassessed. Patient is alert, oriented x 3, equal unlabored respirations, skin warm/dry/pink. General: Appears in no apparent distress. obese, well groomed, Behavior is calm, cooperative, appropriate for age. Cardiovascular: Capillary refill < 3 seconds. Respiratory: Airway is patent Respiratory effort is even, unlabored, Respiratory pattern is regular, symmetrical. Musculoskeletal: Circulation, motion, and sensation intact. Range of motion: intact in all extremities. Injury Description: Puncture sustained to left hand and palmar aspect of proximal phalanx of left index finger and dorsal aspect of proximal phalanx of left index finger and MCP of left index finger. 11:10 Reassessment: Patient appears in no apparent distress at this time. No changes from tw2 previously documented assessment. Patient and/or family updated on plan of care and expected duration. Pain level reassessed. Patient is alert, oriented x 3, equal unlabored respirations, skin warm/dry/pink. Vital Signs: 08:46 Weight 120.2 kg; Height 5 ft. 5 in. (165.10 cm); Pain 8/10; sv 09:16 BP 124 / 84; Pulse 81; Resp 18; Temp 97.6(TE); Pulse Ox 99% on R/A; mh5 09:26 BP 118 / 78; Pulse 76; Resp 16; Temp 97.5(TE); Pulse Ox 99% on R/A; mh5 10:47 BP 119 / 87; Pulse 78; Resp 18; Temp 97.0; Pulse Ox 100% on R/A; ph 08:46 Body Mass Index 44.10 (120.20 kg, 165.10 cm) sv ED Course: 08:37 Patient arrived in ED. rg4 08:41 Ronaldo Chavarria MD is Attending Physician. quan 08:44 Patient has correct armband on for positive identification. Placed in gown. Bed in low mh5 position. Call light in reach. Pulse ox on. NIBP on. 08:47 Triage completed. sv 08:57 Enma Watkins RN is Primary Nurse. ph 09:00 Arm band placed on Patient placed in an exam room, on a stretcher. ph 09:15 Inserted saline lock: 22 gauge in left forearm, using aseptic technique. mh5 09:36 Inserted saline lock: 22 gauge in right antecubital area, using aseptic technique. ph 09:38 Hand Left 3 View XRAY In Process Unspecified. EDMS 09:56 Chaz Alonso MD is Referral Physician. quan 10:01 Awaiting re-evaluation by ER provider, Awaiting: and decision to suture prior to tw2 discharge. 10:45 Assist provider with laceration repair on palmar aspect of proximal phalanx of left ph index finger and dorsal aspect of proximal phalanx of left index finger that was 2.5 cm. or less using sutures. Set up tray. Performed by Ronaldo Chavarria MD Patient tolerated well. IV discontinued, intact, bleeding controlled, No redness/swelling at site. Pressure dressing applied. 10:54 Dressings: non-adherent dressing x 1 left hand and palmar aspect of proximal phalanx of tw2 left index finger and dorsal aspect of proximal phalanx of left index finger 4X4s X 1; left hand secured with coban, pt tolerated well. CMS intact. 10:55 IV discontinued, intact, bleeding controlled, No redness/swelling at site. Pressure tw2 dressing applied, to RIGHT ac. Administered Medications: 09:35 Drug: NS 0.9% 500 ml Route: IV; Rate: bolus; Site: right antecubital; ph 10:47 Follow up: Response: No adverse reaction; IV Status: Completed infusion; IV Intake: ph 500ml 09:36 Drug: Ancef 1 grams Route: IVPB; Site: right antecubital; ph 10:46 Follow up: Response: No adverse reaction; IV Status: Completed infusion ph 09:36 Not Given (UTD, last tetanus 1-2 years ago): Tetanus-Diphtheria Toxoid Adult 0.5 ml IM ph once 10:01 Drug: KeFLEX 500 mg Route: PO; tw2 10:26 Follow up: Response: No adverse reaction tw2 10:26 Drug: Lidocaine (1 %) 10 ml Volume: 5 ml; Route: Infiltration; tw2 Intake: 10:47 IV: 500ml; Total: 500ml. ph Outcome: 10:00 Discharge ordered by . [facility] 10:47 Discharged to home ambulatory. ph 10:47 Condition: good 10:47 Discharge instructions given to patient, Instructed on discharge instructions, follow up and referral plans. medication usage, Demonstrated understanding of instructions, follow-up care, medications, Prescriptions given X 2. 11:10 Patient left the ED. tw2 Signatures: Dispatcher [employer] Lindy Restrepo RN RN sv Anderson, Corey, MD MD cha Hall, Patricia, RN RN ph Wise, Tara, RN RN 2 Rika Lee rg4 Zacarias, Ayesha 5
--- NOTE | 2020-10-24 10:08 | RAD REPORT ---
EXAM DESCRIPTION: RAD - Hand Left 3 View - 10/24/2020 9:38 am CLINICAL HISTORY: PAINleft index finger laceration COMPARISON: None. FINDINGS: No fracture, dislocation or periosteal reaction noted. Left second digit soft tissue injur y seen at the level of the second proximal phalanx. No foreign body is present. IMPRESSION: No acute left hand bone or joint finding. No foreign body.
[2020-10-24] MEDS ORDERED: LIDOCAINE 1% MPF 5 ML VIAL ONE ×2 (10:11→10:34)
[2020-10-24] MEDS ORDERED: CEPHALEXIN 250 MG CAP ONE (10:11)
[2020-10-26 15:54] VITALS: BP 119/87; TEMP 97; O2SAT 100
== END 2020-10-24 11:10 | disposition home or self-care (01) ==
LOC: ER 08:36
PROC: 0JQK0ZZ Repair Left Hand Subcutaneous Tissue and Fascia, Open Approach (ICD-10-PCS; principal; 2020-10-24)
DX: S61.211A Laceration without foreign body of left index finger without damage to nail, initial encounter (principal); W45.8XXA Other foreign body or object entering through skin, initial encounter; Y93.9 Activity, unspecified; Y92.009 Unspecified place in unspecified non-institutional (private) residence as the place of occurrence of the external cause; I10 Essential (primary) hypertension
CPT/HCPCS: 90714; 96365; 99284; J0690; J7040